=== PATIENT | male | born 2000 | race Caucasian/White ===

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

== ENCOUNTER 2022-09-21 01:29 | Emergency (ER) | payer MEDICAID, OTHER ==
[~2022-09-21] VITALS: Ht 172.7 cm; Wt 100.0 kg
[~2022-09-21 01:29] MED LIST: ACET-2708 MT; IBUP-2028 MT; SILV50CR31 TP
[2022-09-21] MEDS ORDERED: ONDANSETRON HCL 4MG/2ML INJ IV STA (02:04)
[2022-09-21] MEDS ORDERED: SODIUM CHLORIDE 0.9% 1,000 ML IV ONE (02:15)
[2022-09-21 03:06] LABS: HEMATOCRIT. 42.4 % (42.0-52.0); HEMOGLOBIN. 14.6 g/dL (14.0-18.0); MEAN CORPUSCULAR VOLUME 87.4 fL (80.0-94.0); MEAN PLATELET VOLUME 9.7 fl (7.4-10.4); PLATELET 242 x1000/uL (130-400); RED BLOOD CELL COUNT 4.85 mill/uL (4.7-6.1); RED CELL DISTRIBUTION WIDTH 13.4 % (11.6-14.6)
[2022-09-21 03:25] LABS: CHLORIDE 101 mEq/L (98-107); ETHANOL BLOOD < 10 mg/dL
[2022-09-21 03:46] LABS: *AMPHETAMINES SCREEN URINE NEGATIVE (NEGATIVE); *BARBITURATES SCREEN URINE NEGATIVE (NEGATIVE); *BENZODIAZEPINES SCREEN URINE NEGATIVE (NEGATIVE); *COCAINE SCREEN URINE NEGATIVE (NEGATIVE); CANNABINOID URINE SCREEN PRESUMTIVE POSITIVE (NEGATIVE); METHADONE URINE SCREEN NEGATIVE (NEGATIVE); OPIATES URINE SCREEN NEGATIVE (NEGATIVE); PHENCYCLIDINE URINE SCREEN NEGATIVE (NEGATIVE)
[2022-09-21] MEDS ORDERED: NALO4SPR BOTHNSTRLS (05:42)
[2022-09-21 05:45] VITALS: BP 120/53
[2022-09-21 08:36] LABS: ATYPICAL LYMPHOCYTES 1; PLATELET ESTIMATE NORMAL
== END 2022-09-21 06:10 | disposition home or self-care (01) ==
LOC: ER 01:42
DX: T40.411A Poisoning by fentanyl or fentanyl analogs, accidental (unintentional), initial encounter (principal); I49.9 Cardiac arrhythmia, unspecified; Y92.9 Unspecified place or not applicable
CPT/HCPCS: 36415; 71045; 80053; 80305; 80307; 80320; 80329; 83605; 85025; 93005; 96374; 99291; J2405; J7030; Z7610; G0480